=== PATIENT | female | born 1980 | race Caucasian/White ===

== ENCOUNTER 2019-11-10 14:00 | Emergency (ER) | payer OTHER ==
[~2019-11-10] VITALS: Ht 172.7 cm; Wt 54.4 kg
[2019-11-10] MEDS ORDERED: NORCO 5-325 TA1 EAC1 PO (15:41)
[2019-11-10 16:19] VITALS: BP 115/74
== END 2019-11-10 16:19 | disposition home or self-care (01) ==
LOC: M.ERS 14:00
DX: S16.1XXA Strain of muscle, fascia and tendon at neck level, initial encounter (principal); S00.12XA Contusion of left eyelid and periocular area, initial encounter; F15.10 Other stimulant abuse, uncomplicated; R68.84 Jaw pain; Y04.8XXA Assault by other bodily force, initial encounter; Y93.89 Activity, other specified; Y92.89 Other specified places as the place of occurrence of the external cause; Y99.8 Other external cause status